=== PATIENT | male | born 1970 | race Caucasian/White ===

== ENCOUNTER → 2017-01-09 | Outpatient (CLI) | payer BC ==
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
== END | disposition home or self-care (01) ==
LOC: RADXRYALE 09:50
PROVIDERS: ATTEND Physician Assistant Medical
DX: M54.2 Cervicalgia (principal)
CPT/HCPCS: 72050

== ENCOUNTER → 2017-12-28 | Outpatient (CLI) | payer BC ==
--- NOTE | 2017-12-28 15:07 | XR ---
EXAMINATION TYPE: XR cervical spine comp DATE OF EXAM: 12/28/2017 CLINICAL HISTORY: pain COMPARISON: NONE TECHNIQUE: Frontal, lateral, oblique, swimmers, and open mouth view of the cervical spine are obtaine d. FINDINGS: The cervical spine is visualized in its entirety from C1 thru the top of T1 level. It is s atisfactory in alignment without evidence of acute fracture or dislocation. The pre-vertebral soft t issue appears within normal limits. Moderate degenerative disc space narrowing at C3-4. Posterior spo ndylosis resulting in mild bilateral foraminal encroachment at this level. The C1-C2 articulation is unremarkable on the open mouth view. The oblique images are within normal limits. IMPRESSION: Moderate degenerative disc space narrowing at C3-4. Posterior spondylosis resulting in m ild bilateral foraminal encroachment at this level.
== END | disposition home or self-care (01) ==
LOC: RADXRYALE 14:13
PROVIDERS: ATTEND Physician Assistant Medical
DX: M48.02 Spinal stenosis, cervical region (principal); M47.812 Spondylosis without myelopathy or radiculopathy, cervical region
CPT/HCPCS: 72050

== ENCOUNTER → 2019-02-09 | Outpatient (CLI) | payer BC ==
--- NOTE | 2019-02-10 08:00 | CT ---
EXAMINATION TYPE: CT abdomen pelvis w con DATE OF EXAM: 02/09/2019 COMPARISON: None INDICATION: LLQ pain DLP: 1436.3 mGycm, Automated exposure control for dose reduction was used. CONTRAST: 100 mL of Isovue 300. Study performed with Oral Contrast TECHNIQUE: Axial images were obtained from above the diaphragm to the pubic rami in the axial plane a t 5 mm thick sections. Reconstructed images are reviewed on the computer in the coronal plane. FINDINGS: Limited CT sections are obtained the lung bases. The lung bases are clear. CT ABDOMEN: Liver: Normal Spleen: Normal Pancreas: Normal Adrenal glands: The adrenal glands are normal. Gallbladder: Normal Kidneys: No masses are evident. No hydronephrosis is present. No cysts are present. Delayed images were obtained through the kidneys. Couple of tiny cortical renal cysts are present on the delayed i mages in the bilateral kidneys. Aorta: Normal Inferior vena cava: Normal. CT PELVIS: Loops of bowel within the abdomen and pelvis are normal. There are loops of bowel which are incom pletely distended or lack oral contrast limiting their evaluation. No significant diverticulosis evid ent. No suspicious inflammatory change suggest acute diverticulitis is evident. Colon appears unremar kable. Colon lacks oral contrast causing some limitation of evaluation. Appendix: Normal as visualized. Urinary bladder: Normal. Genitourinary structures: Prostate is somewhat prominent. Osseous structures: No suspicious lytic or sclerotic lesions. IMPRESSIONS: 1. No suspicious abnormality to account for left lower quadrant pain.
== END | disposition home or self-care (01) ==
LOC: RADCTMAIN 09:46
PROVIDERS: ATTEND Physician Assistant Medical
DX: R10.32 Left lower quadrant pain (principal); R19.7 Diarrhea, unspecified
CPT/HCPCS: 74177; Q9967 ×2

== ENCOUNTER → 2020-02-17 | Outpatient (CLI) | payer BC | END | disposition home or self-care (01) | LOC: LABWHC1 08:50 | PROVIDERS: ATTEND Family Medicine | DX: M79.10 Myalgia, unspecified site (principal); R05 Cough | CPT/HCPCS: U0003; C9803 ==

== ENCOUNTER 2021-03-18 10:40 | Emergency (ER) | payer BC ==
[2021-03-18] MEDS ORDERED: CASIRIVIMAB (REGN10933) (EUA) 600 MG, IMDEVIMAB (REGN10987) (EUA) 600 MG in SODIUM CHLO... IVPB ONE (11:30)
[2021-03-18] MEDS ORDERED: SODIUM CHLORIDE 0.9% 50 ML IVPB ONE (11:30)
--- NOTE | 2021-03-18 12:25 | ED ---
Recheck HPI - General Chief Complaint: Recheck/Abnormal Lab/Rx Stated Complaint: Covid+ Time Seen by Provider: 03/18/21 10:55 Source: patient, RN notes reviewed Mode of arrival: ambulatory Limitations: no limitations - History of Present Illness Initial Comments: Patient is a 51-year-old male presenting to the emergency department requesting monoclonal antibodies for Covid. Patient states he tested +6 days ago, symptoms began about 7 days ago. He has been having a mild cough, congestion. He has been fully vaccinated. He denies any chest pain or shortness of breath, no nausea or vomiting, no diarrhea. He states he's been feeling pretty well but wants to get infusion. Patient has no further complaints at this time. His vital signs are normal. - Related Data Allergies Allergy/AdvReac Type Severity Reaction Status Date / Time No Known Allergies Allergy Verified 03/18/21 10:50 Review of Systems ROS Statement: Those systems with pertinent positive or pertinent negative responses have been documented in the HPI. ROS Other: All systems not noted in ROS Statement are negative. Past Medical History Past Medical History: No Reported History History of Any Multi-Drug Resistant Organisms: None Reported Past Surgical History: No Surgical Hx Reported Past Psychological History: No Psychological Hx Reported Smoking Status: Never smoker Past Alcohol Use History: Occasional Past Drug Use History: None Reported General Exam - General Exam Comments Initial Comments: GENERAL: Patient is well-developed and well-nourished. Patient is nontoxic and in no acute distress. HEAD: Atraumatic, normocephalic. EYES: Pupils equal round and reactive to light, extraocular movements intact, sclera anicteric, conjunctiva are normal. Eyelids were unremarkable. ENT: Oropharynx clear without exudates. Moist mucous membranes. NECK: Normal range of motion, supple without lymphadenopathy or JVD. LUNGS: Unlabored respirations. Very mild scattered wheezes in the upper lobes, there is congestion noted however this improves with coughing or clearing. HEART: Regular rate and rhythm without murmurs, rubs or gallops. ABDOMEN: Soft, nontender, normoactive bowel sounds. No guarding, no rebound. No masses appreciated. : Deferred MUSCULOSKELETAL: Normal extremities with adequate strength and normal range of motion, no pitting or edema. No clubbing or cyanosis. NEUROLOGICAL: Patient is alert and oriented x 3. SKIN: Warm, Dry, normal turgor, no rashes or lesions noted. Limitations: no limitations Course Vital Signs 03/18/21 03/18/21 10:47 11:09 Temperature 97.7 F Pulse Rate 80 Respiratory 20 16 Rate Blood Pressure 124/82 O2 Sat by Pulse 97 Oximetry Medical Decision Making - Medical Decision Making Patient is a 51-year-old male here requesting Covid antibodies. He tested +6 days ago, symptoms began about 7 days ago. His vitals are normal, exam is unremarkable except for some mild wheezes. Patient did receive infusion, no adverse side effects. He is stable for discharge. I will put him on steroids secondary to wheezing. He is agreeable to this. Return parameters were discussed with them and verbalized understanding. Disposition Clinical Impression: COVID-19 Disposition: HOME SELF-CARE Condition: Stable Instructions (If sedation given, give patient instructions): Coronavirus Disease 2019 (COVID-19) Additional Instructions: Please return to the Emergency Department if symptoms worsen or any other concerns. Take steroids as prescribed. May take Tylenol and/or Motrin for any body aches. Follow-up with PCP as needed. Is patient prescribed a controlled substance at d/c from ED?: No Referrals: Thad Mane DO [Primary Care Provider] - 1-2 days Time of Disposition: 12:25
[2021-03-18 13:40] VITALS: BP 121/83; PULSE 72; RESP 18; TEMP 98.1
== END 2021-03-18 13:39 | disposition home or self-care (01) ==
LOC: EC 10:40
DX: U07.1 COVID-19 (principal)
CPT/HCPCS: 99283 ×2; 96365; M0243; Q0243

== ENCOUNTER → 2021-09-17 | Day surgery (SDC) | payer BC ==
[2021-09-16 10:31] VITALS: BMI 32.5
[~2021-09-17] MED LIST: ACETAMINOPHEN TAB 500 MG TAB PO PRN; BUPIVACAINE (PF) 0.25% 30 ML VIAL SQ ONE; DEXAMETHASONE SOD PHOSPHATE 4 MG/ML 1 ML VIAL IV ONE; HEPARIN SODIUM,PORCINE/PF 5,000 UNIT/0.5 ML SYRINGE SQ PRN; HYDROmorphone 0.5 MG/0.5 ML SYRINGE IVP PRN; LACTATED RINGERS 1,000 ML IV SCH; LIDOCAINE 2% INJ 20 MG/ML (2 ML VIAL) ONE; MIDAZOLAM 2 MG/2 ML VIAL IV PRN; MIDAZOLAM 2 MG/2 ML VIAL ONE; NALOXONE 0.4 MG/ML 1 ML VIAL IV PRN; ONDANSETRON 4 MG/2 ML VIAL IVP ONE; PROPOFOL 10 MG/ML 20 ML VIAL IV ONE; Pre Op ABX Message 1 EACH MISC MISCELLANE ONE; SCOPOLAMINE 1 MG/72 HR PATCH TRANSDERM ONE; SODIUM CHLORIDE 0.9% 100 ML with ceFAZolin 2,000 MG IV ONE; SUCCINYLCHOLINE CHLORIDE 100 MG/5 ML SYR IV ONE; fentaNYL (PF) 50 MCG/ML 2 ML AMP ONE; traMADol 50 MG TAB PO PRN
[2021-09-17 08:10] VITALS: RESP 16
[2021-09-17 08:12] LABS: Glucose,Whole Blood 111 mg/dL (75-99)
--- NOTE | 2021-09-17 09:38 | P.GSHP ---
History of Present Illness H&P Date: 09/17/21 Chief Complaint: Lipomas, colon cancer screening 51-year-old male here today for colonoscopy and removal symptomatically lipomas. Patient has had lipomas removed previously. Last colonoscopy 10 years ago. No family history of colon cancer. Past Medical History Past Medical History: Diabetes Mellitus, GERD/Reflux, Hyperlipidemia, Hypertension, Skin Disorder Additional Past Medical History / Comment(s): Lipomas bilat thighs, chest. History of Any Multi-Drug Resistant Organisms: None Reported Past Surgical History: No Surgical Hx Reported Additional Past Surgical History / Comment(s): Eyelid surgery Past Anesthesia/Blood Transfusion Reactions: No Reported Reaction Smoking Status: Never smoker - Past Family History Mother Family Medical History: No Reported History Medications and Allergies Home Medications Medication Instructions Recorded Confirmed Type Empagliflozin [Jardiance] 25 mg PO BID 09/16/21 09/16/21 History Gabapentin [Neurontin] 300 mg PO TID 09/16/21 09/16/21 History Omeprazole [PriLOSEC] 20 mg PO HS 09/16/21 09/16/21 History Rosuvastatin Calcium [Crestor] 20 mg PO HS 09/16/21 09/16/21 History lisinopriL [Zestril] 20 mg PO HS 09/16/21 09/16/21 History Allergies Allergy/AdvReac Type Severity Reaction Status Date / Time No Known Allergies Allergy Verified 09/17/21 07:58 Surgical - Exam Vital Signs Temp Pulse Resp BP Pulse Ox 96.6 F L 66 16 133/89 97 09/17/21 08:03 09/17/21 08:03 09/17/21 08:03 09/17/21 08:03 09/17/21 08:03 Physical exam: General: Well-developed, well-nourished HEENT: Normocephalic, sclerae nonicteric Abdomen: Nontender, nondistended Extremities: No edema, multiple lipomas noted, one anterior right chest, one po sterior left thigh, one anterior left thigh, for anterior right thigh, 2 posterior right thigh, one right flank all the lipomas measuring anywhere from 1-3 cm in size Neuro: Alert and oriented Results - Labs Abnormal Lab Results - Last 24 Hours (Table) 09/17/21 Range/Units 08:09 POC Glucose (mg/dL) 111 H (75-99) mg/dL Assessment and Plan (1) Lipoma Narrative/Plan: We'll proceed with surgical excision of multiple lipomas and colonoscopy at this time. Risks of bleeding, infection, recurrence reviewed. He understands and wishes to proceed. Current Visit: Yes Status: Acute Code(s): D17.9 - BENIGN LIPOMATOUS NEOPLASM, UNSPECIFIED SNOMED Code(s): 90044403
[2021-09-17 11:06] VITALS: TEMP 97
--- NOTE | 2021-09-17 11:10 | P.OP ---
Date of Procedure: 09/17/21 Procedure(s) Performed: PREOPERATIVE DIAGNOSIS: Multiple subcutaneous lipomas, colon cancer screening POSTOPERATIVE DIAGNOSIS: Same PROCEDURE: Excision multiple lipomas with intermediate closure, Colonoscopy ANESTHESIA: Gen. SURGEON: Bruno Oreilly M.D. SPECIMENS: Multiple lipomas ENDOSCOPIC PROCEDURE: The patient was placed on the operating table in the supine position after general anesthesia was achieved. The patient had multiple lipomas involving the upper chest and lower extremities. All lipomas were excised after a incision was created using the scalpel. Blunt dissection was used to remove the lipomatous masses. All incision sites were closed using interrupted 3-0 Vicryl subcutaneous sutures and interrupted 4-0 Monocryl subcuticular sutures. Steri-Strips were then applied. Location and size for the polyps were: left posterior 2 cm, left anterior 2 cm, left anterior 2 cm, right posterior 3 cm, right posterior 3 cm, right anterior 3 cm, right anterior 3 cm, right anterior 2 cm, right anterior 1 cm, right chest wall 2 cm. total length of intermediate closure measures 23 cm. Lipomas were sent to pathology for close examination. Following that the patient was in the left decubitus position. The Olympus colonoscope was inserted into the anus and passed under direct visualization to the base of the cecum. The appendiceal orifice was visualized. From that point the scope was slowly withdrawn inspecting all surfaces carefully. There were no neoplastic inflammatory or polypoid lesions throughout the cecum, ascending, transverse, descending, sigmoid and rectum. There was no visible diverticulosis noted. Digital rectal examination was normal. The patient was taken to the recovery room in stable condition per anesthesia guidelines.
[2021-09-17 12:02] VITALS: BP 136/88; PULSE 75
== END ==
LOC: OR 07:35
PROVIDERS: ATTEND Surgery
DX: Z12.11 Encounter for screening for malignant neoplasm of colon (principal); D17.39 Benign lipomatous neoplasm of skin and subcutaneous tissue of other sites; K21.9 Gastro-esophageal reflux disease without esophagitis; E11.9 Type 2 diabetes mellitus without complications; E78.5 Hyperlipidemia, unspecified; I10 Essential (primary) hypertension; Z79.899 Other long term (current) drug therapy
CPT/HCPCS: 45380; 11406; 88304; J2250; J1100; J2405; J0690; J3010; J0330; J2704; J1644; J2001

== ENCOUNTER → 2021-10-12 | Outpatient (CLI) | payer BC ==
--- NOTE | 2021-10-12 09:40 | XR ---
EXAMINATION TYPE: XR lumbar spine 2 or 3V DATE OF EXAM: 10/12/2021 CLINICAL HISTORY: Polyneuropathy. Pain. TECHNIQUE: Frontal and lateral images of the lumbar spine are obtained. COMPARISON: CT abdomen and pelvis February 09, 2019 FINDINGS: There are 5 lumbar type vertebral bodies redemonstrated. The lumbar spine shows stable an d satisfactory alignment without evidence of acute fracture or dislocation. Mild disc space narrowing and anterior spurring L1-L2 level otherwise vertebral body heights and disk space heights are within normal limits. The overlying soft tissue appears unremarkable. IMPRESSION: As above.
== END | disposition home or self-care (01) ==
LOC: RADXRYALE 08:58
PROVIDERS: ATTEND Physician Assistant Medical
DX: G62.9 Polyneuropathy, unspecified (principal)
CPT/HCPCS: 72100

== ENCOUNTER → 2022-03-04 | Outpatient (CLI) | payer BC ==
--- NOTE | 2022-03-06 07:20 | MR ---
EXAMINATION TYPE: MR lumbar spine wo con DATE OF EXAM: 03/04/2022 COMPARISON: X-ray lumbar spine October 12, 2021. CT abdomen and pelvis February 09, 2019 HISTORY: Pain radiating down the left side of pt's lower body x3 months TECHNIQUE: Multiplanar, multisequence imaging of the lumbar spine is performed without IV contrast. FINDINGS: Sagittal images of the lumbar spine show vertebral body heights and alignment to remain sat isfactory. Mild The disc space narrowing and anterior spurring L1-L2 level redemonstrated otherwise d isc heights are maintained. Multilevel disc desiccation noted. The conus Medullaris is normal in posi tion and signal ending mid L1 level. The bone marrow signal intensity is within normal limits. Mild multilevel anterior spurring. Axial images at T12-L1 level shows tiny right paracentral disc protrusion minimally effacing the ante rior thecal sac. Axial images at L1-L2 level show mild broad disc bulge minimally effaces the anterior thecal sac. Axial images at L2-L3 and L3-L4 levels appear within normal limits. Axial images at L4-L5 level show and L5-S1 level show mild facet arthropathy bilaterally. Spinal swapna l is preserved. Bilateral neuroforamen are patent. Paraspinal muscle bulk is maintained. IMPRESSION: Mild multilevel degenerative changes in lumbar spine as detailed above.
== END | disposition home or self-care (01) ==
LOC: RADMRIMAIN 20:45
PROVIDERS: ATTEND Physician Assistant Medical
DX: M47.816 Spondylosis without myelopathy or radiculopathy, lumbar region (principal)
CPT/HCPCS: 72148

== ENCOUNTER → 2023-08-07 | Outpatient (CLI) | payer BC ==
--- NOTE | 2023-08-09 15:15 | XR ---
EXAMINATION TYPE: XR abdomen 2V DATE OF EXAM: 08/07/2023 10:01 AM CLINICAL INDICATION:Male, 53 years old with history of [id number] LOWER ABD PAIN; [facility] COMPARISON: None. TECHNIQUE: Supine and upright views of the abdomen were obtained. FINDINGS: The bowel gas pattern is nonspecific without dilated loops of small or large bowel. Fecal m aterial and gas are demonstrated throughout the colon and rectum. There is no evidence for organomeg elijah or pneumoperitoneum. The osseous structures are intact. No abnormal calcifications are shown. P elvic phleboliths. IMPRESSION: 1. Nonspecific, nonobstructive bowel gas pattern. No free air detected. 2. No visible urinary tract calculi. 3. If concern persists, recommend followup radiographs or CT.
== END | disposition home or self-care (01) ==
LOC: RADXRYALE 09:36
PROVIDERS: ATTEND Physician Assistant Medical
DX: K31.89 Other diseases of stomach and duodenum (principal)
CPT/HCPCS: 74019

== ENCOUNTER 2023-08-08 12:20 | Emergency (ER) | payer BC ==
--- NOTE | 2023-08-08 13:02 | ED ---
Abdominal Pain HPI - General Source: patient, RN notes reviewed Mode of arrival: ambulatory Limitations: no limitations <Radha Andujar - Last Filed: 08/08/23 13:00> <John Mathew - Last Filed: 08/28/23 15:38> - General Stated Complaint: Flu like Symptoms, Blood in Urine Time Seen by Provider: 08/08/23 12:35 - History of Present Illness Initial Comments: Quick Note- 53-year-old male with chief complaint of right-sided flank pain, suprapubic tenderness, nausea and feelings of fever since Monday. Patient states that he went to his primary care provider yesterday with similar complaints and was found to have blood in his urine. He was not tested for viral infections at his primary care (Radha Andujar) - Related Data Home Medications Medication Instructions Recorded Confirmed Empagliflozin [Jardiance] 25 mg PO BID 09/16/21 09/16/21 Gabapentin [Neurontin] 300 mg PO TID 09/16/21 09/16/21 Omeprazole [PriLOSEC] 20 mg PO HS 09/16/21 09/16/21 Rosuvastatin Calcium [Crestor] 20 mg PO HS 09/16/21 09/16/21 lisinopriL [Zestril] 20 mg PO HS 09/16/21 09/16/21 Previous Rx's Medication Instructions Recorded Dicyclomine [Bentyl] 20 mg PO QID #15 tablet 08/08/23 Famotidine [Pepcid] 20 mg PO BID #14 tablet 08/08/23 Ondansetron Odt [Zofran ODT] 4 mg PO Q8HR PRN #10 tab 08/08/23 Allergies Allergy/AdvReac Type Severity Reaction Status Date / Time No Known Allergies Allergy Verified 09/17/21 07:58 Review of Systems ROS Other: All systems not noted in ROS Statement are negative. <Radha Andujar - Last Filed: 08/08/23 13:00> ROS Other: All systems not noted in ROS Statement are negative. <John aMthew - Last Filed: 08/28/23 15:38> ROS Statement: Those systems with pertinent positive or pertinent negative responses have been documented in the HPI. Past Medical History Past Medical History: Diabetes Mellitus, GERD/Reflux, Hyperlipidemia, Hypertension, Skin Disorder Additional Past Medical History / Comment(s): Lipomas bilat thighs, chest. History of Any Multi-Drug Resistant Organisms: None Reported Past Surgical History: No Surgical Hx Reported Additional Past Surgical History / Comment(s): Eyelid surgery Past Anesthesia/Blood Transfusion Reactions: No Reported Reaction Past Psychological History: No Psychological Hx Reported Smoking Status: Never smoker - Past Family History Mother Family Medical History: No Reported History <Stieler,Radha - Last Filed: 08/08/23 13:00> General Exam Limitations: no limitations <Stieler,Radha - Last Filed: 08/08/23 13:00> Limitations: no limitations General appearance: alert, in no apparent distress Head exam: Present: atraumatic, normocephalic Eye exam: Present: normal appearance. Absent: scleral icterus, conjunctival injection Neck exam: Present: normal inspection Respiratory exam: Present: normal lung sounds bilaterally. Absent: respiratory distress, wheezes, rales, rhonchi, stridor, accessory muscle use Cardiovascular Exam: Present: regular rate, normal rhythm, normal heart sounds. Absent: systolic murmur, diastolic murmur, rubs, gallop GI/Abdominal exam: Present: soft, tenderness (There is mild epigastric and right upper quadrant tenderness, no rebound or guarding). Absent: distended, guarding, rebound, rigid, mass, pulsatile mass, hernia Extremities exam: Present: normal inspection, normal capillary refill. Absent: pedal edema, calf tenderness Back exam: Present: normal inspection. Absent: CVA tenderness (R), CVA tenderness (L) Neurological exam: Present: alert Skin exam: Present: warm, dry, intact, normal color. Absent: rash <John Mathew - Last Filed: 08/28/23 15:38> - General Exam Comments Initial Comments: Visual Physical Exam Vital signs reviewed General: Well-appearing, nontoxic, no acute distress. Head: Normocephalic, atraumatic Eyes: PERRLA, EOMI ENT: Airway patent Chest: Nonlabored breathing Skin: No visual rash, normal skin tone Neuro: Alert and oriented 3 Musculoskeletal: No gross abnormalities (Stieler,Radha) Course Vital Signs 08/08/23 08/08/23 08/08/23 12:57 17:36 19:52 Temperature 97.9 F 98 F 98.1 F Pulse Rate 110 H 96 87 Respiratory 20 16 18 Rate Blood Pressure 141/85 141/81 127/76 O2 Sat by Pulse 96 99 97 Oximetry Medical Decision Making <Radha Andujar - Last Filed: 08/08/23 13:00> - Lab Data Result diagrams: 08/08/23 12:57 08/08/23 12:57 <John Mathew - Last Filed: 08/28/23 15:38> - Medical Decision Making I completed the quick note portion of this chart signed Radha Andujar PA-C (Radha Andujar) The patient had CT of the abdomen and pelvis which I interpreted as negative for free air, obstruction, or evidence of acute cholecystitis The patient had ultrasound of the right upper quadrant which I interpreted as negative for signs of acute cholecystitis Was pt. sent in by a medical professional or institution (CATHERINE Silva, MEAT INSPECTOR, urgent care, hospital, or assisted...) When possible be specific @ -[No] Did you speak to anyone other than the patient for history (EMS, parent, family, police, friend...)? What history was obtained from this source @ -[No] Did you review nursing and triage notes (agree or disagree)? Why? @ -[I reviewed and agree with nursing and triage notes] Were old charts reviewed (outside hosp., previous admission, EMS record, old EKG, old radiological studies, urgent care reports/EKG's, assisted records)? Report findings @ -[No old charts were reviewed] Differential Diagnosis (chest pain, altered mental status, abdominal pain women, abdominal pain men, vaginal bleeding, weakness, fever, dyspnea, syncope, headache, dizziness, GI bleed, back pain, seizure, CVA, palpatations, mental health, musculoskeletal)? @ -[Differential Abdominal Pain Men: Appendicitis, cholecystitis, diverticulosis, ischemic bowel, pancreatitis, hepatitis, UTI, gastroenteritis, AAA, incarcerated hernia, bowel obstruction, constipation, inflammatory bowel, hepatitis, peptic ulcer disease, splenic infarction, perforated viscus, testicular torsion, this is not meant to be an all-inclusive list EKG interpreted by me (3pts min.). @ -[As above] X-rays interpreted by me (1pt min.). @ -[None done] CT interpreted by me (1pt min.). @ -[I interpreted as above U/S interpreted by me (1pt. min.). @ -[N I interpreted as above What testing was considered but not performed or refused? (CT, X-rays, U/S, labs)? Why? @ -[None] What meds were considered but not given or refused? Why? @ -[None] Did you discuss the management of the patient with other professionals (professionals i.e. DrEvan, PA, MEAT INSPECTOR, lab, RT, psych nurse, nephrology social worker, blind installer, teacher, national service officer, rn field case manager)? Give summary @ -[No] Was smoking cessation discussed for >3mins.? @ -[No] Was critical care preformed (if so, how long)? @ -[No] Were there social determinants of health that impacted care today? How? (Homelessness, low income, unemployed, alcoholism, drug addiction, transportation, low edu. Level, literacy, decrease access to med. care, residential, rehab)? @ -[No] Was there de-escalation of care discussed even if they declined (Discuss DNR or withdrawal of care, Hospice)? DNR status @ -[No] What co-morbidities impacted this encounter? (DM, HTN, Smoking, COPD, CAD, Cancer, CVA, ARF, Chemo, Hep., AIDS, mental health diagnosis, sleep apnea, morbid obesity)? @ -[None] Was patient admitted / discharged? Hospital course, mention meds given and route, prescriptions, significant lab abnormalities, going to OR and other pertinent info. @ -[Patient is 53-year-old man presenting with abdominal pain. He does have tenderness to the epigastric right upper quadrant areas and therefore has CT of the abdomen and 1 that did not reveal etiology he had ultrasound. The patient is feeling better following medications. We discussed appropriate further care and follow-up as well as return parameters. Undiagnosed new problem with uncertain prognosis? @ -[No] Drug Therapy requiring intensive monitoring for toxicity (Heparin, Nitro, Insulin, Cardizem)? @ -[No] Were any procedures done? @ -[No] Diagnosis/symptom? @ -[Acute abdominal pain Acute, or Chronic, or Acute on Chronic? @ -[Acute Uncomplicated (without systemic symptoms) or Complicated (systemic symptoms)? @ -[Uncomplicated Side effects of treatment? @ -[No] Exacerbation, Progression, or Severe Exacerbation? @ -[No] Poses a threat to life or bodily function? How? (Chest pain, [place], [place], pneumonia, PE, COPD, DKA, ARF, appy, cholecystitis, CVA, Diverticulitis, Homicidal, Suicidal, threat to staff... and all critical care pts) @ -[No] (John Mathew) - Lab Data Lab Results 08/08/23 08/08/23 08/08/23 Range/Units 12:57 12:57 12:57 WBC 9.9 (3.8-10.6) k/uL RBC 6.02 H (4.30-5.90) m/uL Hgb 18.1 H (13.0-17.5) gm/dL Hct 50.8 (39.0-53.0) % MCV 84.4 (80.0-100.0) fL MCH 30.1 (25.0-35.0) pg MCHC 35.7 (31.0-37.0) g/dL RDW 13.8 (11.5-15.5) % Plt Count 119 L (150-450) k/uL MPV 8.1 Neutrophils % 72 % Lymphocytes % 17 % Monocytes % 8 % Eosinophils % 0 % Basophils % 0 % Neutrophils # 7.1 (1.3-7.7) k/uL Lymphocytes # 1.6 (1.0-4.8) k/uL Monocytes # 0.8 (0-1.0) k/uL Eosinophils # 0.0 (0-0.7) k/uL Basophils # 0.0 (0-0.2) k/uL Hyperchromasia Slight Sodium 137 (137-145) mmol/L Potassium 3.3 L (3.5-5.1) mmol/L Chloride 109 H (98-107) mmol/L Carbon Dioxide 13 L (22-30) mmol/L Anion Gap 15 mmol/L BUN 31 H (9-20) mg/dL Creatinine 0.76 (0.66-1.25) mg/dL Est GFR (CKD-EPI)AfAm >90 (>60 ml/min/1.73 sqM) Est GFR (CKD-EPI)NonAf >90 (>60 ml/min/1.73 sqM) Glucose 130 H (74-99) mg/dL Calcium 8.9 (8.4-10.2) mg/dL Total Bilirubin 3.0 H (0.2-1.3) mg/dL AST 40 (17-59) U/L ALT 80 H (4-49) U/L Alkaline Phosphatase 157 H (38-126) U/L Total Protein 6.1 L (6.3-8.2) g/dL Albumin 3.9 (3.5-5.0) g/dL Urine Color Light Yellow Urine Appearance Clear (Clear) Urine pH 5.5 (5.0-8.0) Ur Specific Simpson 1.048 H (1.001-1.035) Urine Protein Trace H (Negative) Urine Glucose (UA) 4+ H (Negative) Urine Ketones 3+ H (Negative) Urine Blood Negative (Negative) Urine Nitrite Negative (Negative) Urine Bilirubin Negative (Negative) Urine Urobilinogen <2.0 (<2.0) mg/dL Ur Leukocyte Esterase Negative (Negative) Influenza Type A (PCR) (Not Detectd) Influenza Type B (PCR) (Not Detectd) RSV (PCR) (Not Detectd) SARS-CoV-2 (PCR) (Not Detectd) 08/08/23 Range/Units 12:57 WBC (3.8-10.6) k/uL RBC (4.30-5.90) m/uL Hgb (13.0-17.5) gm/dL Hct (39.0-53.0) % MCV (80.0-100.0) fL MCH (25.0-35.0) pg MCHC (31.0-37.0) g/dL RDW (11.5-15.5) % Plt Count (150-450) k/uL MPV Neutrophils % % Lymphocytes % % Monocytes % % Eosinophils % % Basophils % % Neutrophils # (1.3-7.7) k/uL Lymphocytes # (1.0-4.8) k/uL Monocytes # (0-1.0) k/uL Eosinophils # (0-0.7) k/uL Basophils # (0-0.2) k/uL Hyperchromasia Sodium (137-145) mmol/L Potassium (3.5-5.1) mmol/L Chloride (98-107) mmol/L Carbon Dioxide (22-30) mmol/L Anion Gap mmol/L BUN (9-20) mg/dL Creatinine (0.66-1.25) mg/dL Est GFR (CKD-EPI)AfAm (>60 ml/min/1.73 sqM) Est GFR (CKD-EPI)NonAf (>60 ml/min/1.73 sqM) Glucose (74-99) mg/dL Calcium (8.4-10.2) mg/dL Total Bilirubin (0.2-1.3) mg/dL AST (17-59) U/L ALT (4-49) U/L Alkaline Phosphatase (38-126) U/L Total Protein (6.3-8.2) g/dL Albumin (3.5-5.0) g/dL Urine Color Urine Appearance (Clear) Urine pH (5.0-8.0) Ur Specific Simpson (1.001-1.035) Urine Protein (Negative) Urine Glucose (UA) (Negative) Urine Ketones (Negative) Urine Blood (Negative) Urine Nitrite (Negative) Urine Bilirubin (Negative) Urine Urobilinogen (<2.0) mg/dL Ur Leukocyte Esterase (Negative) Influenza Type A (PCR) Not Detected (Not Detectd) Influenza Type B (PCR) Not Detected (Not Detectd) RSV (PCR) Not Detected (Not Detectd) SARS-CoV-2 (PCR) Not Detected (Not Detectd) Disposition <Radha Andujar - Last Filed: 08/08/23 13:00> Is patient prescribed a controlled substance at d/c from ED?: No <John Mathew - Last Filed: 08/28/23 15:38> Clinical Impression: Abdominal pain Disposition: HOME SELF-CARE Condition: Good Instructions (If sedation given, give patient instructions): Abdominal Pain (ED) Prescriptions: Dicyclomine [Bentyl] 20 mg PO QID #15 tablet Famotidine [Pepcid] 20 mg PO BID #14 tablet Ondansetron Odt [Zofran ODT] 4 mg PO Q8HR PRN #10 tab PRN Reason: Nausea Referrals: Thad Mane DO [Primary Care Provider] - 1-2 days
[2023-08-08 13:21] LABS: Basophils % (A) 0 %; Eosinophils % (A) 0 %; HCT 50.8 % (39.0-53.0); HGB 18.1 gm/dL (13.0-17.5); Hyperchromasia Slight; Lymphocytes # (A) 1.6 k/uL (1.0-4.8); Lymphocytes % (A) 17 %; MCH 30.1 pg (25.0-35.0); MCHC 35.7 g/dL (31.0-37.0); MCV 84.4 fL (80.0-100.0); Mean Platelet Volume 8.1; Monocytes # (A) 0.8 k/uL (0-1.0); Monocytes % (A) 8 %; Neutrophils # (A) 7.1 k/uL (1.3-7.7); Neutrophils % (A) 72 %; Platelet Count 119 k/uL (150-450); RBC 6.02 m/uL (4.30-5.90); RDW 13.8 % (11.5-15.5); WBC 9.9 k/uL (3.8-10.6)
[2023-08-08 13:42] LABS: ALT 80 U/L (4-49); AST 40 U/L (17-59); African American GFR (CKD) >90 (>60 ml/min/1.73 sqM); Albumin 3.9 g/dL (3.5-5.0); Alkaline Phosphatase 157 U/L (38-126); Anion Gap 15 mmol/L; Blood Urea Nitrogen 31 mg/dL (9-20); Calcium 8.9 mg/dL (8.4-10.2); Carbon Dioxide 13 mmol/L (22-30); Chloride 109 mmol/L (98-107); Glucose 130 mg/dL (74-99); Non-African American GFR(CKD) >90 (>60 ml/min/1.73 sqM); Potassium 3.3 mmol/L (3.5-5.1); Sodium 137 mmol/L (137-145); Total Protein 6.1 g/dL (6.3-8.2)
--- NOTE | 2023-08-08 13:50 | CT ---
EXAMINATION TYPE: CT abdomen pelvis wo con CT DLP: 845.9 mGycm, Automated exposure control for dose reduction was used. DATE OF EXAM: 08/08/2023 1:42 PM COMPARISON: 02/01/2019 CLINICAL INDICATION:Male, 53 years old with history of flank pain, hematuria; Right flank pain, micro scopic hematuria TECHNIQUE: Axial CT abdomen pelvis wo con;Sagittal and coronal reformats were created on a separate workstation. Contrast used: (none if empty) Oral contrast used: without Oral Contrast (none if empty) FINDINGS: LOWER CHEST: Unremarkable ABDOMEN LIVER: Unremarkable GALLBLADDER AND BILE DUCTS: Unremarkable. PANCREAS: Unremarkable. SPLEEN: Unremarkable. ADRENAL GLANDS: Unremarkable. KIDNEYS AND URETERS: No evidence of hydronephrosis or renal calculus. The ureters are unremarkable. PELVIS BLADDER: Unremarkable REPRODUCTIVE: Unremarkable. ABDOMEN & PELVIS STOMACH AND BOWEL: No evidence of bowel obstruction. PERITONEUM/RETROPERITONEUM: No evidence of pneumoperitoneum or free fluid. VASCULATURE: No evidence of aortic aneurysm. MUSCULOSKELETAL: No acute osseous abnormalities LYMPH NODES: No gross evidence for lymphadenopathy. SOFT TISSUE/ABDOMINAL WALL: Left fat-containing inguinal hernia. IMPRESSION: 1. No obstructive uropathy or renal calculus. 2. No acute abdominal process.
[2023-08-08 14:23] LABS: Appearance,Urine Clear (Clear); Bilirubin,Urine Negative (Negative); Blood,Urine Negative (Negative); Color,Urine Light Yellow; Glucose,Urine (UA) 4+ (Negative); Leukocyte Esterase,Urine Negative (Negative); Nitrite,Urine Negative (Negative); PH, Urine 5.5 (5.0-8.0); Protein,Urine Trace (Negative); Urobilinogen,Urine <2.0 mg/dL (<2.0)
[2023-08-08 14:29] LABS: Specific Gravity,Urine 1.048 (1.001-1.035)
[2023-08-08 14:30] LABS: Ketones,Urine 3+ (Negative)
--- NOTE | 2023-08-08 15:33 | US ---
EXAMINATION TYPE: US gallbladder DATE OF EXAM: 08/08/2023 COMPARISON: CT today 08/08/2023 CLINICAL INDICATION: Male, 53 years old with history of Right sided abdominal pain, elevated LFTs; Ri ght sided pain 3 days, elevated LFTs. TECHNIQUE: Multiple sonographic images of the right upper quadrant are obtained. FINDINGS: EXAM MEASUREMENTS: Liver Length: 15.8 cm Gallbladder Wall: 0.28 cm CBD: Obscured Right Kidney: 12.9 x 5.8 x 5.4 cm HOTEL RESERVATIONIST NOTES: Exam is very limited due to gas and patient body habitus. Pancreas: Limited visibility of head and tail. Liver: Appears very coarse with increased echogenicity. 2 hyperechoic areas seen within the right lobe: #1 =1.4 x 1.7 x 1.4 cm. #2= 1.7 x 1.3 x 1.5 cm. Gallbladder: Limited due to gas. Evidence for sonographic Hope's sign: No CBD: Obscured Right Kidney: Enlarged. Renal pelvis appears dilated. IMPRESSION: 1. No evidence for acute process. 2. Hepatic hemangiomas measuring up to 1.7 cm are suggested.
[2023-08-08] MEDS: ONDANSETRON 4 MG/2 ML VIAL IVP STA (17:37)
[2023-08-08] MEDS: FAMOTIDINE 20 MG/2 ML VIAL IV STA (17:37)
[2023-08-08] MEDS: SODIUM CHLORIDE 0.9% 1,000 ML IV ONE (17:41)
[2023-08-08 20:19] VITALS: BP 127/76; PULSE 87; RESP 18; TEMP 98.1
== END 2023-08-08 19:57 | disposition home or self-care (01) ==
LOC: EC 12:20
DX: R10.9 Unspecified abdominal pain (principal)
CPT/HCPCS: 36415; 80053; 85025; 81003; 87636; 76705; 74176; 99284; 96374; 96375; 96361; J2405; J3490

== ENCOUNTER → 2024-02-13 | Outpatient (CLI) | payer OTHER ==
--- NOTE | 2024-02-13 10:32 | XR ---
EXAMINATION TYPE: XR chest 2V DATE OF EXAM: 02/13/2024 10:19 AM COMPARISON: None TECHNIQUE: XR chest 2V Frontal and lateral views of the chest. CLINICAL INDICATION:Male, 54 years old with history of [id number] COUGH; FINDINGS: Lungs/Pleura: There is no evidence of pleural effusion, focal consolidation, or pneumothorax. Pulmonary vascularity: Unremarkable. Heart/mediastinum: Cardiomediastinal silhouette is unremarkable. Musculoskeletal: No acute osseous pathology. IMPRESSION: No acute cardiopulmonary disease/process. [facility], , 02/13/2024 10:30 AM
== END | disposition home or self-care (01) ==
LOC: RADXRYALE 10:05
PROVIDERS: ATTEND Physician Assistant Medical
DX: R05.9 Cough, unspecified (principal)
CPT/HCPCS: 71046